=== PATIENT | female | born 1940 | race Two or more races ===

== ENCOUNTER 2018-10-19 20:02 | Emergency (ER) | payer OTHER ==
[~2018-10-19] VITALS: Ht 147.3 cm; Wt 64.4 kg
[2018-10-19] MEDS ORDERED: METFORMIN HCL500 MG PO (20:21)
[2018-10-19] MEDS ORDERED: GLUMETZA500 MG (20:22)
[2018-10-19] MEDS ORDERED: COZAAR50 MG PO (20:22)
[2018-10-19] MEDS ORDERED: LIPOFEN150 MG (20:22)
== END 2018-10-19 22:17 | disposition home or self-care (01) ==
LOC: ER 20:02
DX: M79.661 Pain in right lower leg (principal); R60.0 Localized edema